=== PATIENT | female | born 1985 | race American Indian/Alaskan Native ===

== ENCOUNTER 2018-05-28 07:51 | Emergency (ER) | payer OTHER ==
[2018-05-28 08:03] VITALS: BP 135/73
[2018-05-28] MEDS ORDERED: KEFLEX PO ONE (08:13)
[2018-05-28] MEDS ORDERED: DECADRON IM ONE (08:13)
--- NOTE | 2018-05-28 08:17 | Emergency Department Report ---
Abscess Boil HPI - HPI Chief Complaint: Headache Stated Complaint: RT SIDE HEAD/PAIN Time Seen by Provider: 05/28/18 08:04 Duration: 1 Week Location: Head Severity: Mild History: Yes Pain, No Fever, No Purulent Drainage, No Numbness, No Foreign Body, No Previous History, No Insect Bite HPI: Salas is a 32-year-old -[place] female who comes to the ER today complaining of a headache. She points to one localized area at the top of her head. It would be her right parietal area. She states the pain is worse when her ponytail is in. She has taken [id number] meds which give her only temporary relief. She states this is been going on for a couple weeks and then added this is the same time that she got her hair done last. Home Medications: Previous Rx's Medication Instructions Recorded Last Taken Type Sulfamethoxazole/Trimethoprim 1 each PO BID #10 tablet 05/28/18 Unknown Rx [Bactrim DS TAB] predniSONE [Deltasone] 20 mg PO QDAY #5 tab 05/28/18 Unknown Rx Allergies/Adverse Reactions: Allergies Allergy/AdvReac Type Severity Reaction Status Date / Time No Known Allergies Allergy Unverified 08/24/13 14:48 ED Review of Systems ROS: Stated complaint: RT SIDE HEAD/PAIN Other details as noted in HPI Comment: All other systems reviewed and negative Constitutional: denies: see HPI, chills, fever Eyes: denies: eye pain ENT: denies: throat pain Respiratory: denies: orthopnea Cardiovascular: denies: dyspnea on exertion Endocrine: denies: intolerance to cold Gastrointestinal: denies: abdominal pain, nausea, vomiting Genitourinary: denies: urgency, dysuria Musculoskeletal: denies: back pain Skin: as per HPI. denies: rash, lesions Neurological: as per HPI, headache, other (NO PHOTOPHOBIA). denies: weakness, numbness, paresthesias, confusion, abnormal gait, vertigo Psychiatric: denies: anxiety Hematological/Lymphatic: denies: easy bleeding ED Past Medical Hx - Past Medical History Previous Medical History?: No - Surgical History Past Surgical History?: Yes Hx Cholecystectomy: Yes - Family History Family history: no significant - Social History Smoking Status: Never Smoker Substance Use Type: None - Medications Home Medications: Home Medications Medication Instructions Recorded Confirmed Last Taken Type Sulfamethoxazole/Trimethoprim 1 each PO BID #10 tablet 05/28/18 Unknown Rx [Bactrim DS TAB] predniSONE [Deltasone] 20 mg PO QDAY #5 tab 05/28/18 Unknown Rx ED Abscess Boil Physical Exam - Exam General: Vital signs noted. No distress. Alert and acting appropriately. Exam: Yes Tenderness, Yes Fluctuance, Yes Normal Neurologic Exam, Yes Normal Circulation, No Surrounding Cellulites/Erythema, No Lymphangitis, No Crepitation, No Heart Murmur Exam: On exam the area described in the HPI is boggy on palpation. The patient has had no trauma. I can find no localized abscess. I can find no rash or other lesion. But there is clearly no inflammatory process localized to this area. ED Course Vital Signs 05/28/18 07:59 Temperature 98.0 F Pulse Rate 63 Respiratory 16 Rate Blood Pressure 135/73 O2 Sat by Pulse 99 Oximetry Critical care attestation.: If time is entered above; I have spent that time in minutes in the direct care o f this critically ill patient, excluding procedure time. ED Medical Decision Making - Medical Decision Making COMPLAINT OF HEADACHE VERY LOCALIZED AREA OF SCALP OCCURRED SAME TIME SHE GOT HER HAIR DONE WORSE WITH PONYTAIL IN OTC MEDS GIVE TEMP RELIEF NO TRAUMA NO FEVER NO PHOTOPHOBIA NO VOMITING GIVEN that the area is so localized. And that it is swollen. I am treating for inflammation and with antibiotics for presumed inflammatory/folliculitis etiology of her pain. I discussed follow-up with Sav with patient if this persists ED Disposition Clinical Impression: Folliculitis Disposition: DC-01 TO HOME OR SELFCARE Is pt being admited?: No Does the pt Need Aspirin: No Condition: Stable Instructions: Folliculitis (ED) Additional Instructions: MEDS ORDERED NO HAIR PRODUCTS MOTRIN OR TYLENOL FOR MILD PAIN FOLLOW UP PCP OR DERM DISCUSSED REFERRALS BELOW DRINK A LOT OF WATER WHILE ON THESE MEDS EAT YOGURT DAILY WHILE ON THESE MEDS Prescriptions: predniSONE [Deltasone] 20 mg PO QDAY #5 tab Sulfamethoxazole/Trimethoprim [Bactrim DS TAB] 1 each PO BID #10 tablet Referrals: SUNNY CHU MD [Primary Care Provider] - 3-5 Days ANNY SCHUSTER MD [Staff Physician] - 3-5 Days JOSE RAFAEL DIMAS MD [Referring] - 3-5 Days Time of Disposition: 08:17
== END 2018-05-28 08:37 | disposition home or self-care (01) ==
LOC: ED 07:51
DX: L73.9 Follicular disorder, unspecified (principal); Z90.49 Acquired absence of other specified parts of digestive tract
CPT/HCPCS: 96372; 99282; J1100